=== PATIENT | male | born 1930 | race Caucasian/White ===

== ENCOUNTER 2017-01-29 18:58 | Inpatient (IN) | payer MEDICARE ==
[~2017-01-29] VITALS: Ht 170.2 cm; Wt 80.1 kg
[~2017-01-29 18:58] MED LIST: CARV6.2579 PO; DEXL60CA2 PO; HYDR-3011 PO; LEVO500T10 PO; METF850T PO; SITA1TBM7 PO; VALS40TA2 PO
--- NOTE | 2017-01-29 19:03 | ERA ---
ER Documentation Chief Complaint Date/Time DATE: 01/29/17 TIME: 19:03 Chief Complaint Abdominal pain HPI The patient is a 86-year-old male, presenting to the ER because of abdominal pain for the last couple days. The history is limited due to language barrier. He denies headache, neck pain, chest pain, dyspnea, vomiting, dysuria, diarrhea. He does not smoke or drink Past medical history: History of CVA with minimal right hemiparesis, hypertension, diabetes mellitus, GERD, anemia, dyslipidemia ROS All systems reviewed and are negative except as per history of present illness. Medications Home Meds Discontinued Reported Medications Hydroxyzine Hcl* (Hydroxyzine Hcl*) 25 Mg Tablet, 25 MG PO Q8H Y for ITCHING, # 30 TAB 08/25/16 Dexlansoprazole (Dexilant) 60 Mg Cap., 60 MG PO DAILY, #30 CAP 08/25/16 Sitagliptin Phos-Metformin Hcl (Janumet XR) 100-1,000 Mg Tbmp.24hr, 1 TAB PO WITH DINNER, #30 TAB 08/25/16 Valsartan* (Diovan*) 40 Mg Tablet, 40 MG PO DAILY, TAB 08/25/16 Metformin Hcl* (Metformin Hcl*) 850 Mg Tablet, 850 MG PO DAILY, TAB 11/04/14 Carvedilol* (Carvedilol*) 6.25 Mg Tablet, 6.25 MG PO BID 09/01/13 Discontinued Scripts Levofloxacin* (Levofloxacin*) 500 Mg Tablet, 500 MG PO DAILY for 10 Days, TAB Prov:KEESHA BENTLEY DO 08/25/16 Allergies Allergies: Coded Allergies: No Known Drug Allergy (Verified Allergy, Unknown, 01/29/17) PMhx/Soc History of Surgery: Yes (HERNIA REPAIR) Anesthesia Reaction: No Hx Neurological Disorder: No Hx Respiratory Disorders: Yes (COPD) Hx Cardiac Disorders: Yes (HTN) Hx Psychiatric Problems: No Hx Miscellaneous Medical Probl: Yes (HX OF STROKE, UTI) Hx Alcohol Use: No Hx Substance Use: No Hx Tobacco Use: Yes Physical Exam Vitals Vital Signs Date Time Temp Pulse Resp B/P Pulse Ox O2 Delivery O2 Flow Rate FiO2 01/29/17 19:07 98.0 105 18 159/95 94 Physical Exam Const: No acute distress. Head: Atraumatic. Eyes: Normal Conjunctiva. ENT: Normal External Ears, Nose and Mouth. Neck: Full range of motion. No meningismus. Resp: Clear to auscultation bilaterally. Cardio: Regular rate and rhythm, no murmurs. Abd: Soft, distended, normal bowel sounds, vague and minimal abdominal tenderness, no rigidity, rebound, CVA tenderness Skin: No petechiae or rashes. Back: No midline or flank tenderness. Ext: No cyanosis, or edema. Neur: Awake and alert. No focal deficit Psych: Normal Mood and Affect. Result Diagram: 01/29/17191401/29/171914 Results 24 hrs Laboratory Tests Test 01/29/17 19:15 Alanine Aminotransferase (ALT/SGPT) 16IU/L Albumin 4.0g/dl Albumin/Globulin Ratio 1.02 Alkaline Phosphatase 78IU/L Anion Gap 21 Aspartate Amino Transf (AST/SGOT) 18IU/L B-Type Natriuretic Peptide 523PG/ML Basophils # 0.110^3/ul Basophils % 0.5% Blood Urea Nitrogen 14mg/dl Calcium Level 9.7mg/dl Carbon Dioxide Level 25mmol/L Chloride Level 100mmol/L Creatinine 0.71mg/dl Direct Bilirubin 0.00mg/dl Eosinophils # 0.110^3/ul Eosinophils % 0.4% Globulin 3.90g/dl Glucose Level 203mg/dl Hematocrit 44.8% Hemoglobin 14.9g/dl Indirect Bilirubin 0.4mg/dl Lipase 61U/L Lymphocytes # 2.210^3/ul Lymphocytes % 19.4% Mean Corpuscular Hemoglobin 29.3pg Mean Corpuscular Hemoglobin Concent 33.3g/dl Mean Corpuscular Volume 88.2fl Mean Platelet Volume 9.5fl Monocytes # 0.710^3/ul Monocytes % 6.5% Neutrophils # 8.210^3/ul Neutrophils % 72.8% Nucleated Red Blood Cells # 0.010^3/ul Nucleated Red Blood Cells % 0.0/100WBC Platelet Count 96097^3/UL Potassium Level 3.6mmol/L Red Blood Count 5.0810^6/ul Red Cell Distribution Width 13.5% Sodium Level 142mmol/L Total Bilirubin 0.4mg/dl Total Protein 7.9g/dl Troponin I < 0.012ng/ml White Blood Count 11.310^3/ul Procedures/MDM [place] [address] Radiology Main Line: [phone] DIAGNOSTIC IMAGING REPORT Patient: CLAUDIA VILLASENOR : 1930 Age: 86 Sex: M MR #: [id number] DOS: 01/29/171906 Ordering MD: THAO RILEY MD Location: E/R Room/Bed: PROCEDURE: XR Chest. CLINICAL INDICATION: Shortness of breath. TECHNIQUE: A single portable view of the chest was obtained. COMPARISON: 11/13/2014 FINDINGS: The patient is rotated. The aorta is tortuous and atherosclerotic. The cardiomediastinal silhouette is otherwise within normal limits. Mild bibasilar atelectasis is seen. The remaining lungs and pleural spaces are clear. The soft tissues and osseous structures demonstrate benign age related senescent changes. IMPRESSION: Mild bibasilar atelectasis. RPTAT: HPNM Physician Echo Date Time Electronically viewed and signed by Physician Echo on 01/29/2017 20 :03 / CC: THAO RILEY MD EKG: Read by emergency physician Rate/Rhythm: Sinus tachycardia 102 beats/min QRS, ST, T-waves: No ST elevation, no T inversion Impression: Abnormal EKG Abdominal and pelvic CT is pending MEDICAL MAKING DECISION: The patient is a 86-year-old male, presenting with acute abdominal distress of unclear etiology. He remains stable in emergency department. The differential diagnoses considered include but are not limited to cholelithiasis, cholecystitis, cystitis, pancreatitis, hepatitis, gastritis, peptic ulcer disease, gastric ulcer, appendicitis, diverticulitis, cholangitis, choledocholithiasis, partial small bowel obstruction. Departure Diagnosis: Primary Impression: Abdominal pain Condition: Good Comments The patient is awaiting further abdominal pelvic CT scan. It is normal, he can be discharged home follow-up with his physician and gastroenterology for further outpatient evaluation THAO RILEY MD Jan 29, 2017 19:03
[2017-01-29 19:30] LABS: ADD SCAN DIFF NO
[2017-01-29 19:32] LABS: HEMATOCRIT 44.8 % (42.0-52.0); HEMOGLOBIN 14.9 g/dl (14.0-18.0); MEAN CORPUSCULAR HEMOGLOBIN 29.3 pg (29.0-33.0); MEAN CORPUSCULAR HGB CONC 33.3 g/dl (32.0-37.0); MEAN CORPUSCULAR VOLUME 88.2 fl (82.0-101.0); RED BLOOD COUNT 5.08 10^6/ul (4.70-6.10); RED CELL DISTRIBUTION WIDTH 13.5 % (11.5-14.5); WHITE BLOOD COUNT 11.3 10^3/ul (4.8-10.8)
[2017-01-29 19:33] LABS: BASOPHIL # 0.1 10^3/ul (0.0-0.1); BASOPHILS % 0.5 % (0.0-2.0); EOSINOPHILS # 0.1 10^3/ul (0.0-0.5); EOSINOPHILS % 0.4 % (0.0-7.0); LYMPHOCYTES # 2.2 10^3/ul (0.8-2.9); LYMPHOCYTES % 19.4 % (15.0-51.0); MEAN PLATELET VOLUME 9.5 fl (7.4-10.4); MONOCYTE # 0.7 10^3/ul (0.3-0.9); MONOCYTES % 6.5 % (0.0-11.0); NEUTROPHIL # 8.2 10^3/ul (1.6-7.5); NEUTROPHILS % 72.8 % (39.0-77.0); PLATELET COUNT 310 10^3/UL (140-415)
[2017-01-29 19:41] LABS: POTASSIUM 3.6 mmol/L (3.5-5.1)
[2017-01-29 19:43] LABS: BILIRUBIN,INDIRECT 0.4 mg/dl (0-1.1); BILIRUBIN,TOTAL 0.4 mg/dl (0.2-1.3); CREATININE 0.71 mg/dl (0.61-1.24)
[2017-01-29 19:44] LABS: ALBUMIN/GLOBULIN RATIO 1.02; CALCIUM 9.7 mg/dl (8.4-10.2); TOTAL PROTEIN 7.9 g/dl (6.1-8.1)
--- NOTE | 2017-01-29 20:04 | RADRPT ---
PROCEDURE: XR Chest. CLINICAL INDICATION: Shortness of breath. TECHNIQUE: A single portable view of the chest was obtained. COMPARISON: 11/13/2014 FINDINGS: The patient is rotated. The aorta is tortuous and atherosclerotic. The cardiomediastinal silhouett e is otherwise within normal limits. Mild bibasilar atelectasis is seen. The remaining lungs and ple ural spaces are clear. The soft tissues and osseous structures demonstrate benign age related senes cent changes. IMPRESSION: Mild bibasilar atelectasis. RPTAT: HPNM Physician Echo Date Time Electronically viewed and signed by Physician Echo on 01/29/2017 20:03 /
--- NOTE | 2017-01-29 21:20 | RADRPT ---
PROCEDURE: CT abdomen and pelvis without IV contrast. CLINICAL INDICATION: Abdominal pain TECHNIQUE: CT scan of the abdomen and pelvis without contrast was performed on the [employer] volumetric [address] scanner. The patient was scanned without intravenous contrast. Coronal and sagittal refo rmatted images were obtained from the axial source images. The CTDI vol is 14.33 mGy and the DLP is 833.92 mGy-cm. COMPARISON: None. FINDINGS: CT abdomen: The lung bases are clear. The heart size is not enlarged and is without pericardial thickening or e ffusion. The liver is normal in size and density and is without focal mass or intrahepatic biliary dilatation . The spleen is normal in size and homogeneous in density. A small hiatal hernia seen. The stomach is otherwise grossly unremarkable. The pancreas as visualized is normal. The gallbladder and bilia ry tree are unremarkable and there is no evidence for common bile duct dilatation. The adrenal glan ds are symmetric and normal. The kidneys are small in size. No renal calculus or obstructive uropa thy or mass lesion is seen. The aorta is of normal in caliber. Atherosclerotic vascular disease is seen. There is no retroperito barak lymphadenopathy. The po hepatis region is clear. The small and large bowel is gas distende d. The rectosigmoid region is fluid-filled. The small and large bowel and mesentery, as visualized , are otherwise unremarkable. No inflammatory changes in the periappendiceal region is seen. CT pelvis: The pelvic organs are normal. The pelvic sidewalls and inguinal regions are clear. No pelvic mass, lymphadenopathy, or free fluid is seen. No acute inflammation is seen. The urinary bladder is wit hin normal limits. Diffuse osteopenia is seen. Degenerative spondylosis of the lumbar spine is seen. Compression fractu res of the L1 and L2 vertebral bodies are seen and is most prominent at L2 with approximate 25-50% h eight loss. No osteolytic or osteoblastic lesion is detected. IMPRESSION: 1. Diffusely gas distended small and large bowel as well as fluid filled rectosigmoid region which may represent an ileus. Continued follow-up is suggested. 2. Small hiatal hernia. 3. L1 and L2 compression fractures and is most prominent at L2 with approximately 25-50% height loss . RPTAT: HPNM Chevy Christie, Physician Date Time Electronically viewed and signed by Chevy Christie, Physician on 01/29/2017 21:20 /
[2017-01-29] MEDS ORDERED: ONDANSETRON 4 MG INJ IV STA (21:28)
[2017-01-29] MEDS ORDERED: ONDANSETRON 4 MG INJ ONE (21:29)
[2017-01-29] MEDS ORDERED: DEXTROSE 5%-0.45% NACL 1,000 ML IV SCH (21:32)
[2017-01-29] MEDS ORDERED: ACETAMINOPHEN 325 MG TAB PO PRN (22:00)
[2017-01-29] MEDS ORDERED: ONDANSETRON 4 MG INJ IV PRN (22:00)
--- NOTE | 2017-01-29 22:25 | HP ---
Date/Time of Note Date/Time of Note DATE: 01/29/17 TIME: 22:24 Assessment/Plan VTE Prophylaxis VTE Prophylaxis Intervention: other (Lovenox) Assessment/Plan Assessment/Plan 1) Ileus - Admit to Med Surge - Bowel Rest/NPO - IV Hydration - Antiemetic if needed - NGT if needed 2) Hypertension - untreated - Labetalol given in ER without change in BP, but pulse came down into the 80s - Hydralazine to be given in the ER to lower BP prior to transfer to the Floor - Atenolol 25 mg and Lisinopril 10 mg po x 1 - Re-check BP in the AM, monitor. May need regular medication going forward. HPI/ROS Admit Date/Time Admit Date/Time 01/29/2017 2132 Hx of Present Illness Chief Complaint Abdominal pain HPI The patient is a 86-year-old male, presenting to the ER because of abdominal pain for the last couple days. He has been bloated and vomiting and has not eaten anything for about 24 hours. Right now, he does not have any abdominal pain or nausea. History is limited because of language barrier, though he does speak/understand some Hungarian, and he has no current complaints. I asked him if he has high blood pressure, he replies "sometimes". ER Course per ER Physician: The patient is a 86-year-old male, presenting with acute abdominal distress of unclear etiology. He remains stable in emergency department. The differential diagnoses considered include but are not limited to cholelithiasis, cholecystitis, cystitis, pancreatitis, hepatitis, gastritis, peptic ulcer disease, gastric ulcer, appendicitis, diverticulitis, cholangitis, choledocholithiasis, partial small bowel obstruction. ROS General: Admits: Denies: Fever, Chills, Generalized Body Aches Eyes: Admits: Denies: Blurry Vision, Double Vision, Yellow Eyes HENT: Admits: Denies: Sinus Pain/Pressure, Ear Pain/Pressure, Runny/Stuffy Nose, Sore Throat Cardiovascular: Admits: Denies: Chest Pain, Palpitations, Leg Swelling Pulmonary: Admits: Denies: Cough, Wheeze, Shortness of Breath Gastrointestinal: Admits: Denies: Abdominal Pain, Nausea, Vomiting, Diarrhea, Blood in Stool, Black-Colored Stool Urogenital: Admits: Difficulty Urinating - "I go in my diaper" Denies: Burning with Urination, Nocturia Musculoskeletal: Admits: Denies: Joint Pain, Joint Swelling, Muscle Pain Neurological: Admits: Denies: Headache, Dizziness, Numbness, Tingling Integumentary: Admits: Denies: Rash, Itch, Yellow Skin PMH/Family/Social Past Medical History Diabetes Mellitus; GERD; Anemia; Dyslipidemia; COPD; HTN; UTI; History of CVA with minimal right hemiparesis Social History Alcohol Use: none Smoking Status: Current every day smoker Drug Use: none Exam/Review of Systems Vital Signs Vitals Vital Signs Date Time Temp Pulse Resp B/P Pulse Ox O2 Delivery O2 Flow Rate FiO2 01/29/17 21:10 80 18 165/100 97 Room Air 01/29/17 19:07 98.0 Exam Exam General: Elcerly Romansh-Speaking male, alert, in NAD Eyes: Sclera White, EOMI HENT: Normocephalic/Atraumatic, External Ears/Nose Normal, Moist Mucus Membranes Neck: Supple, Trachea Midline Cardiovascular: Normal Rate, Normal Rhythm, Normal S1 and S2, No Murmur, No Extra Sounds Pulmonary: Clear to Auscultation Bilaterally, Normal Respiratory Effort, No Rales, Rhonchi or Wheezes Gastrointestinal: Bloated abdomen, slightly tympanic. Normoactive Bowel Sounds , Soft, Non-Tender, Unable to appreciate abdominal organs due to pronounced distention. No fluid wave. Urogenital: Deferred Neurological: CN II - XII Grossly Intact, Non-Focal, Speech Normal Integumentary: Normal Moisture and Temperature, Good Turgor, No Jaundice, No Rash Lymphatic: No Cervical Lymphadenopathy Psychiatric: Appropriate Mood and Affect, Good Eye Contact Labs Result Diagram: 01/29/17191401/29/171914 Medications Medications Home Meds Discontinued Reported Medications Hydroxyzine Hcl* (Hydroxyzine Hcl*) 25 Mg Tablet, 25 MG PO Q8H Y for ITCHING, # 30 TAB 08/25/16 Dexlansoprazole (Dexilant) 60 Mg , 60 MG PO DAILY, #30 CAP 08/25/16 Sitagliptin Phos-Metformin Hcl (Janumet XR) 100-1,000 Mg Tbmp.24hr, 1 TAB PO WITH DINNER, #30 TAB 08/25/16 Valsartan* (Diovan*) 40 Mg Tablet, 40 MG PO DAILY, TAB 08/25/16 Metformin Hcl* (Metformin Hcl*) 850 Mg Tablet, 850 MG PO DAILY, TAB 11/04/14 Carvedilol* (Carvedilol*) 6.25 Mg Tablet, 6.25 MG PO BID 09/01/13 Discontinued Scripts Levofloxacin* (Levofloxacin*) 500 Mg Tablet, 500 MG PO DAILY for 10 Days, TAB Prov:KEESHA BENTLEY DO 08/25/16 Current Medications Dextrose/Sodium Chloride (D5-1/2ns) 1,000 ml @ 80 mls/hr [id number] IV ; Start at 21:32; Stop 01/30/17 at 10:01 Procedures Procedures Laboratory Tests Test 01/29/17 19:15 Alanine Aminotransferase (ALT/SGPT) 16IU/L Albumin 4.0g/dl Albumin/Globulin Ratio 1.02 Alkaline Phosphatase 78IU/L Anion Gap 21 Aspartate Amino Transf (AST/SGOT) 18IU/L B-Type Natriuretic Peptide 523PG/ML Basophils # 0.110^3/ul Basophils % 0.5% Blood Urea Nitrogen 14mg/dl Calcium Level 9.7mg/dl Carbon Dioxide Level 25mmol/L Chloride Level 100mmol/L Creatinine 0.71mg/dl Direct Bilirubin 0.00mg/dl Eosinophils # 0.110^3/ul Eosinophils % 0.4% Globulin 3.90g/dl Glucose Level 203mg/dl Hematocrit 44.8% Hemoglobin 14.9g/dl Indirect Bilirubin 0.4mg/dl Lipase 61U/L Lymphocytes # 2.210^3/ul Lymphocytes % 19.4% Mean Corpuscular Hemoglobin 29.3pg Mean Corpuscular Hemoglobin Concent 33.3g/dl Mean Corpuscular Volume 88.2fl Mean Platelet Volume 9.5fl Monocytes # 0.710^3/ul Monocytes % 6.5% Neutrophils # 8.210^3/ul Neutrophils % 72.8% Nucleated Red Blood Cells # 0.010^3/ul Nucleated Red Blood Cells % 0.0/100WBC Platelet Count 08800^3/UL Potassium Level 3.6mmol/L Red Blood Count 5.0810^6/ul Red Cell Distribution Width 13.5% Sodium Level 142mmol/L Total Bilirubin 0.4mg/dl Total Protein 7.9g/dl Troponin I < 0.012ng/ml White Blood Count 11.310^3/ul EKG: EKG: Read by emergency physician Rate/Rhythm: Sinus tachycardia 102 beats/min QRS, ST, T-waves: No ST elevation, no T inversion Impression: Abnormal EKG RADIOLOGY: PROCEDURE: CT abdomen and pelvis without IV contrast. CLINICAL INDICATION: Abdominal pain COMPARISON: None. FINDINGS: CT abdomen: The lung bases are clear. The heart size is not enlarged and is without pericardial thickening or effusion. The liver is normal in size and density and is without focal mass or intrahepatic biliary dilatation. The spleen is normal in size and homogeneous in density. A small hiatal hernia seen. The stomach is otherwise grossly unremarkable. The pancreas as visualized is normal. The gallbladder and biliary tree are unremarkable and there is no evidence for common bile duct dilatation. The adrenal glands are symmetric and normal. The kidneys are small in size. No renal calculus or obstructive uropathy or mass lesion is seen. The aorta is of normal in caliber. Atherosclerotic vascular disease is seen. There is no retroperitoneal lymphadenopathy. The po hepatis region is clear. The small and large bowel is gas distended. The rectosigmoid region is fluid-filled. The small and large bowel and mesentery, as visualized, are otherwise unremarkable. No inflammatory changes in the periappendiceal region is seen. CT pelvis: The pelvic organs are normal. The pelvic sidewalls and inguinal regions are clear. No pelvic mass, lymphadenopathy, or free fluid is seen. No acute inflammation is seen. The urinary bladder is within normal limits. Diffuse osteopenia is seen. Degenerative spondylosis of the lumbar spine is seen. Compression fractures of the L1 and L2 vertebral bodies are seen and is most prominent at L2 with approximate 25-50% height loss. No osteolytic or osteoblastic lesion is detected. IMPRESSION: 1. Diffusely gas distended small and large bowel as well as fluid filled rectosigmoid region which may represent an ileus. Continued follow-up is suggested. 2. Small hiatal hernia. 3. L1 and L2 compression fractures and is most prominent at L2 with approximately 25-50% height loss. PROCEDURE: XR Chest. CLINICAL INDICATION: Shortness of breath. TECHNIQUE: A single portable view of the chest was obtained. COMPARISON: 11/13/2014 FINDINGS: The patient is rotated. The aorta is tortuous and atherosclerotic. The cardiomediastinal silhouette is otherwise within normal limits. Mild bibasilar atelectasis is seen. The remaining lungs and pleural spaces are clear. The soft tissues and osseous structures demonstrate benign age related senescent changes. IMPRESSION: Mild bibasilar atelectasis. RIYA GASPAR DO Jan 29, 2017 22:24
[2017-01-30] MEDS ORDERED: LABETALOL HCL 20MG INJ ONE (00:21)
[2017-01-30] MEDS ORDERED: LABETALOL HCL 20MG INJ IV ONE (00:30)
[2017-01-30] MEDS ORDERED: hydrALAzine 20 MG INJ ONE (00:51)
[2017-01-30 01:00] VITALS: TEMP 98.4
[2017-01-30] MEDS ORDERED: METOPROLOL 25 MG TAB PO ONE (01:00)
[2017-01-30] MEDS ORDERED: hydrALAzine 20 MG INJ IV ONE (01:00)
[2017-01-30] MEDS ORDERED: BENAZEPRIL 10 MG TAB PO ONE (01:00)
[2017-01-30] MEDS ORDERED: ONDANSETRON 4 MG TAB PO PRN (01:30)
[2017-01-30] MEDS ORDERED: morphine 2 MG INJ IV PRN (01:30)
[2017-01-30] MEDS ORDERED: NACL 0.9% 3 ML SYG IV SCH (01:30)
[2017-01-30] MEDS ORDERED: ONDANSETRON 4 MG INJ IV PRN (01:30)
[2017-01-30] MEDS ORDERED: ACETAMINOPHEN 325 MG TAB PO PRN (01:30)
[2017-01-30 01:45] VITALS: BP 139/74; PULSE 83; RESP 20
[2017-01-30 01:49] VITALS: Ht 170.2 cm; Wt 80.1 kg
[2017-01-30] MEDS: SOD CHLORIDE 0.9% 1,000 ML IV SCH ×3 (01:54→20:43)
[2017-01-30] MEDS ORDERED: GLUCOSE GEL 15 GRAM TUBE PO PRN ×2 (03:00)
[2017-01-30] MEDS ORDERED: GLUCOSE GEL 15 GRAM TUBE BUCCAL PRN (03:00)
[2017-01-30] MEDS ORDERED: GLUCAGON 1 MG INJ IM PRN (03:00)
[2017-01-30] MEDS ORDERED: DEXTROSE 50% 50 ML SYRINGE IV PRN ×2 (03:00)
[2017-01-30 05:42] LABS: ADD SCAN DIFF NO
[2017-01-30 06:12] LABS: BASOPHILS % 0.3 % (0.0-2.0); EOSINOPHILS % 0.1 % (0.0-7.0); HEMATOCRIT 38.7 % (42.0-52.0); HEMOGLOBIN 12.9 g/dl (14.0-18.0); LYMPHOCYTES # 1.7 10^3/ul (0.8-2.9); LYMPHOCYTES % 18.4 % (15.0-51.0); MEAN CORPUSCULAR HEMOGLOBIN 29.7 pg (29.0-33.0); MEAN CORPUSCULAR HGB CONC 33.3 g/dl (32.0-37.0); MEAN CORPUSCULAR VOLUME 89.2 fl (82.0-101.0); MEAN PLATELET VOLUME 9.6 fl (7.4-10.4); MONOCYTE # 0.5 10^3/ul (0.3-0.9); MONOCYTES % 5.8 % (0.0-11.0); NEUTROPHIL # 6.9 10^3/ul (1.6-7.5); PLATELET COUNT 292 10^3/UL (140-415); RED BLOOD COUNT 4.34 10^6/ul (4.70-6.10); RED CELL DISTRIBUTION WIDTH 13.7 % (11.5-14.5); WHITE BLOOD COUNT 9.3 10^3/ul (4.8-10.8)
[2017-01-30] MEDS: INSULIN ASPART [NOVOLOG] 3 ML PEN SC SCH ×4 (06:29→23:51)
[2017-01-30 06:42] LABS: POTASSIUM 3.3 mmol/L (3.5-5.1)
[2017-01-30 06:44] LABS: CREATININE 0.65 mg/dl (0.61-1.24)
[2017-01-30 06:45] LABS: CALCIUM 8.7 mg/dl (8.4-10.2)
[2017-01-30 07:36] VITALS: BP 127/60; RESP 16
[2017-01-30 07:41] LABS: CHOL/HDL RATIO 5.3 RATIO
[2017-01-30] MEDS: FAMOTIDINE 20 MG INJ IV SCH ×2 (08:47→20:44)
[2017-01-30] MEDS: ENOXAPARIN 40 MG/0.4 ML SYG SC SCH (08:53)
--- NOTE | 2017-01-30 09:34 | PN ---
Date/Time of Note Date/Time of Note DATE: 01/30/17 TIME: 09:26 Assessment/Plan VTE Prophylaxis VTE Prophylaxis Intervention: LMWH Lines/Catheters IV Catheter Type (from Nrsg): Peripheral IV Urinary Cath still in place: No Assessment/Plan Assessment/Plan 86 yo M with abd pain managed for 1. Abd Ileus 2. Chronic L1/ L2 Compression fracture 3. Uncontrolled Diabetes Mellitus A1C 7.7 4. GERD 5. Dyslipidemia 6. COPD 7. HTN 8. History of CVA with minimal right hemiparesis 9. Hypokalemia PLAN: * ileus seems to have spontaneously resolved / will get SBFT * Will review CT with back surgeon and see if patient is stable for PT eval / this may be pursued as outpatient * continue SSI for now while NPO and commence hypoglycemics when started on a diet * replace lytes / resume aspirin / antihypertensives and statin / supportive care PROPHYLAXIS: Lovenox / pepcid Subjective 24 Hr Interval Summary Free Text/Dictation * Patient is doing much better' * reports improvement in abd pain * per nurses, he had a big BM yesterday and has been [assing gas since * Patient reports being 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 Exam/Review of Systems Vital Signs Vitals Vital Signs Date Time Temp Pulse Resp B/P Pulse Ox O2 Delivery O2 Flow Rate FiO2 01/30/17 07:36 98.0 80 16 127/60 93 01/30/17 01:45 Room Air Intake and Output 01/29/17 01/29/17 01/30/17 15:00 23:00 07:00 Intake Total 576.3 ml Balance 576.3 ml Exam Constitutional: alert, obese, oriented, other (elderly), No distress Psych: nl mood/affect Head: normocephalic Eyes: PERRL, No icteric ENMT: No mucosa pink and moist (dry) Neck: non-tender, supple Respiratory: clear to auscultation, normal air movement Cardiovascular: regular rate and rhythm, No murmurs/extra sounds Gastrointestinal: non-tender, other (obese), soft, No distended Extremities: No edema Neurological: nl mental status, other (R sided weakness (weak 4/5 ) in both upper and lower extremities) Results Result Diagram: 01/30/17 0450 01/30/17 0450 Results 24 hrs Laboratory Tests Test 01/29/17 19:15 01/30/17 04:50 01/30/17 05:45 Alanine Aminotransferase (ALT/SGPT) 16 Albumin 4.0 Albumin/Globulin Ratio 1.02 Alkaline Phosphatase 78 Anion Gap 21 H 17 H Aspartate Amino Transf (AST/SGOT) 18 B-Type Natriuretic Peptide 523 H Basophils # 0.1 0.0 Basophils % 0.5 0.3 Blood Urea Nitrogen 14 14 Calcium Level 9.7 8.7 Carbon Dioxide Level 25 24 Chloride Level 100 102 Creatinine 0.71 0.65 Direct Bilirubin 0.00 Eosinophils # 0.1 0.0 Eosinophils % 0.4 0.1 Globulin 3.90 H Glucose Level 203 221 H Hematocrit 44.8 38.7 L Hemoglobin 14.9 12.9 L Indirect Bilirubin 0.4 Lipase 61 Lymphocytes # 2.2 1.7 Lymphocytes % 19.4 18.4 Mean Corpuscular Hemoglobin 29.3 29.7 Mean Corpuscular Hemoglobin Concent 33.3 33.3 Mean Corpuscular Volume 88.2 89.2 Mean Platelet Volume 9.5 # 9.6 Monocytes # 0.7 0.5 Monocytes % 6.5 5.8 Neutrophils # 8.2 H 6.9 Neutrophils % 72.8 75.0 Nucleated Red Blood Cells # 0.0 0.0 Nucleated Red Blood Cells % 0.0 0.0 Platelet Count 310 292 Potassium Level 3.6 3.3 L Red Blood Count 5.08 4.34 L Red Cell Distribution Width 13.5 13.7 Sodium Level 142 140 Total Bilirubin 0.4 Total Protein 7.9 Troponin I < 0.012 White Blood Count 11.3 #H 9.3 Cholesterol Level 235 H Cholesterol/HDL Ratio 5.3 HDL Cholesterol 44 Hemoglobin A1c 7.7 H LDL Cholesterol, Calculated 163 Triglycerides Level 139 Bedside Glucose 201 Medications Medications Current Medications Sodium Chloride (NS) 1,000 ml @ 100 mls/hr Q10H IV Last administered on t 01:54; Admin Dose 100 MLS/HR; Start 01/30/17 at 01:11 Ondansetron HCl (Zofran Tab) 4 mg Q6H PRN PO NAUSEA AND/OR VOMITING; Start at 01:30 Ondansetron HCl (Zofran Inj) 4 mg Q6H PRN IV NAUSEA AND/OR VOMITING; Start at 01:30 Acetaminophen (Tylenol Tab) 650 mg Q6H PRN PO PAIN LEVEL 1-3 OR FEVER; Start at 01:30 Morphine Sulfate (morphine) 2 mg Q4H PRN IV SEVERE PAIN LEVEL 7-10; Start 01/30 at 01:30 Famotidine (Pepcid Iv) 20 mg Q12 IV Last administered on 01/30/17 08:47; Admin Dose 20 MG; Start 01/30/17 at 09:00 Enoxaparin Sodium (Lovenox) 40 mg DAILY SC Last administered on 01/30/17 08:53 ; Admin Dose 40 MG; Start 01/30/17 at 09:00 Insulin Aspart (Novolog Insulin Pen) NOVOLOG *MILD* ALGORI... Q6 SC Last administered on 01/30/17 06:29; Admin Dose 2 UNIT; Start 01/30/17 at 06:00 Miscellaneous Information 1 ea NOTE XX ; Start 01/30/17 at 03:00 Glucose (Glutose) 15 gm Q15M PRN PO DECREASED GLUCOSE; Start 01/30/17 at 03:00 Glucose (Glutose) 22.5 gm Q15M PRN PO DECREASED GLUCOSE; Start 01/30/17 at 03: 00 Dextrose (D50w Syringe) 25 ml Q15M PRN IV DECREASED GLUCOSE; Start 01/30/17 at 03:00 Dextrose (D50w Syringe) 50 ml Q15M PRN IV DECREASED GLUCOSE; Start 01/30/17 at 03:00 Glucagon (Glucagen) 1 mg Q15M PRN IM DECREASED GLUCOSE; Start 01/30/17 at 03:00 Glucose (Glutose) 15 gm Q15M PRN BUCCAL DECREASED GLUCOSE; Start 01/30/17 at 03 :00 SHANAE BRAGA Jan 30, 2017 09:34
[2017-01-30] MEDS ORDERED: POTASSIUM CHLORIDE 250 ML IVPB ONE (10:30)
[2017-01-30] MEDS ORDERED: DIATR MEGLU/DIATRIZOATE SODIUM 120 ML BTL ONE (15:01)
[2017-01-30 17:26] LABS: ADD UMIC YES; URINE BILIRUBIN (Dip) NEGATIVE (NEGATIVE); URINE BLOOD (Dip) NEGATIVE (NEGATIVE); URINE COLOR YELLOW (YELLOW); URINE KETONES (Dip) NEGATIVE (NEGATIVE); URINE LEUKOCYTE ESTERASE (Dip) NEGATIVE (NEGATIVE); URINE NITRITE (Dip) NEGATIVE (NEGATIVE); URINE TOTAL PROTEIN (Dip) 1+ (NEGATIVE); URINE UROBILINOGEN (Dip) 1.0 E.U./dL (0.1-1.0)
[2017-01-30 17:41] LABS: SQUAMOUS EPITHELIAL CELL,UR RARE; URINE RBCS 0-2 /HPF (0)
--- NOTE | 2017-01-30 18:34 | RADRPT ---
PROCEDURE: Small bowel follow-through. CLINICAL INDICATION: Abdomen pain. TECHNIQUE: Water-soluble contrast was administered orally and several spot and overhead radiograph s of the abdomen were obtained. COMPARISON: None. FINDINGS: On the preliminary radiograph, there is gas throughout nondilated small bowel and colon. There are d egenerative changes of the spine. Following oral ingestion of water soluble contrast, there is no visualization of small bowel displac ement or mass. The small bowel folds are normal. There is no evidence of obstruction. Transit time is normal with contrast in the colon at 60 minutes and throughout the rectosigmoid at h ours. IMPRESSION: 1. No evidence of obstruction. RPTAT: QQ .Kirk Villalobos MD, MD Date Time Electronically viewed and signed by .Kirk Villalobos MD, on 01/30/2017 18:33 .R/
[2017-01-30 19:52] VITALS: BP 133/64; RESP 19
[2017-01-30] MEDS: ATORVASTATIN 40 MG TAB PO SCH (20:48)
[2017-01-31 05:14] LABS: ADD SCAN DIFF NO
[2017-01-31 05:19] LABS: BASOPHILS % 0.5 % (0.0-2.0); EOSINOPHILS # 0.2 10^3/ul (0.0-0.5); EOSINOPHILS % 2.3 % (0.0-7.0); HEMATOCRIT 36.1 % (42.0-52.0); HEMOGLOBIN 11.5 g/dl (14.0-18.0); LYMPHOCYTES # 2.5 10^3/ul (0.8-2.9); LYMPHOCYTES % 34.2 % (15.0-51.0); MEAN CORPUSCULAR HEMOGLOBIN 29.2 pg (29.0-33.0); MEAN CORPUSCULAR HGB CONC 31.9 g/dl (32.0-37.0); MEAN CORPUSCULAR VOLUME 91.6 fl (82.0-101.0); MEAN PLATELET VOLUME 9.6 fl (7.4-10.4); MONOCYTE # 0.6 10^3/ul (0.3-0.9); NEUTROPHILS % 54.7 % (39.0-77.0); PLATELET COUNT 265 10^3/UL (140-415); RED BLOOD COUNT 3.94 10^6/ul (4.70-6.10); RED CELL DISTRIBUTION WIDTH 14.3 % (11.5-14.5); WHITE BLOOD COUNT 7.4 10^3/ul (4.8-10.8)
[2017-01-31] MEDS: SOD CHLORIDE 0.9% 1,000 ML IV SCH ×2 (05:20→17:11)
[2017-01-31 05:33] LABS: ALBUMIN 3.2 g/dl (3.3-4.9)
[2017-01-31 05:36] LABS: CREATININE 0.74 mg/dl (0.61-1.24); PHOSPHORUS 2.8 mg/dl (2.5-4.9)
[2017-01-31 05:37] LABS: CALCIUM 8.2 mg/dl (8.4-10.2); MAGNESIUM 1.8 mg/dl (1.7-2.5)
[2017-01-31] MEDS: INSULIN ASPART [NOVOLOG] 3 ML PEN SC SCH ×4 (06:00→21:00)
[2017-01-31 06:07] LABS: THYROID STIMULATING HORMONE 1.27 MIU/L (0.465-4.680)
[2017-01-31 07:57] VITALS: BP 144/65; RESP 20
[2017-01-31] MEDS: ASPIRIN (EC) 81 MG TAB PO SCH (08:50)
[2017-01-31] MEDS: FAMOTIDINE 20 MG INJ IV SCH ×2 (08:51→21:00)
[2017-01-31] MEDS: LISINOPRIL 20 MG TAB PO SCH (08:51)
[2017-01-31] MEDS: ENOXAPARIN 40 MG/0.4 ML SYG SC SCH (09:06)
--- NOTE | 2017-01-31 09:42 | PN ---
Date/Time of Note Date/Time of Note DATE: 01/31/17 TIME: 09:41 Assessment/Plan Lines/Catheters IV Catheter Type (from [facility]): Peripheral IV Urinary Cath still in place: No Exam/Review of Systems Vital Signs Vitals Vital Signs Date Time Temp Pulse Resp B/P Pulse Ox O2 Delivery O2 Flow Rate FiO2 01/31/17 07:57 98.9 77 20 144/65 97 01/30/17 01:45 Room Air Intake and Output 01/30/17 01/30/17 01/31/17 15:00 23:00 07:00 Intake Total 600 ml 850 ml 1000 ml Balance 600 ml 850 ml 1000 ml Results Result Diagram: 01/31/17 0421 01/31/17 0425 Results 24 hrs Laboratory Tests Test 01/30/17 11:52 01/30/17 17:20 01/30/17 18:04 01/30/17 23:44 Bedside Glucose 149 164 143 Urine Bilirubin NEGATIVE Urine Clarity CLEAR Urine Color YELLOW Urine Glucose 0.1% H Urine Hemoglobin NEGATIVE Urine Ketones NEGATIVE Urine Leukocyte Esterase NEGATIVE Urine Microscopic RBC 0-2 Urine Microscopic WBC 0-2 Urine Nitrite NEGATIVE Urine Specific [place] >=1.030 H Urine Squamous Epithelial Cells RARE Urine Total Protein 1+ H Urine Urobilinogen 1.0 E.U./dL Urine pH 5.5 Test 01/31/17 04:21 01/31/17 04:25 01/31/17 06:00 Basophils # 0.0 Basophils % 0.5 Eosinophils # 0.2 Eosinophils % 2.3 Hematocrit 36.1 L Hemoglobin 11.5 L Lymphocytes # 2.5 Lymphocytes % 34.2 Mean Corpuscular Hemoglobin 29.2 Mean Corpuscular Hemoglobin Concent 31.9 L Mean Corpuscular Volume 91.6 Mean Platelet Volume 9.6 Monocytes # 0.6 Monocytes % 8.0 Neutrophils # 4.0 Neutrophils % 54.7 Nucleated Red Blood Cells # 0.0 Nucleated Red Blood Cells % 0.0 Platelet Count 265 Red Blood Count 3.94 L Red Cell Distribution Width 14.3 White Blood Count 7.4 # Albumin 3.2 L Anion Gap 14 Blood Urea Nitrogen 16 Calcium Level 8.2 L Carbon Dioxide Level 28 Chloride Level 107 Creatinine 0.74 Glucose Level 138 # Magnesium Level 1.8 Phosphorus Level 2.8 Potassium Level 3.0 L Sodium Level 146 H Thyroid Stimulating Hormone (TSH) 1.270 Bedside Glucose 135 Medications Medications Current Medications Sodium Chloride (NS) 1,000 ml @ 100 mls/hr Q10H IV Last administered on 05:20; Admin Dose 100 MLS/HR; Start 01/30/17 at 01:11 Ondansetron HCl (Zofran Tab) 4 mg Q6H PRN PO NAUSEA AND/OR VOMITING; Start at 01:30 Ondansetron HCl (Zofran Inj) 4 mg Q6H PRN IV NAUSEA AND/OR VOMITING; Start at 01:30 Acetaminophen (Tylenol Tab) 650 mg Q6H PRN PO PAIN LEVEL 1-3 OR FEVER; Start at 01:30 Morphine Sulfate (morphine) 2 mg Q4H PRN IV SEVERE PAIN LEVEL 7-10; Start 01/30 at 01:30 Famotidine (Pepcid Iv) 20 mg Q12 IV Last administered on 01/31/17 08:51; Admin Dose 20 MG; Start 01/30/17 at 09:00 Enoxaparin Sodium (Lovenox) 40 mg DAILY SC Last administered on 01/31/17 09:06 ; Admin Dose 40 MG; Start 01/30/17 at 09:00 Insulin Aspart (Novolog Insulin Pen) NOVOLOG *MILD* ALGORI... Q6 SC Last administered on 01/30/17 23:51; Admin Dose 1 UNIT; Start 01/30/17 at 06:00 Miscellaneous Information 1 ea NOTE XX ; Start 01/30/17 at 03:00 Glucose (Glutose) 15 gm Q15M PRN PO DECREASED GLUCOSE; Start 01/30/17 at 03:00 Glucose (Glutose) 22.5 gm Q15M PRN PO DECREASED GLUCOSE; Start 01/30/17 at 03: 00 Dextrose (D50w Syringe) 25 ml Q15M PRN IV DECREASED GLUCOSE; Start 01/30/17 at 03:00 Dextrose (D50w Syringe) 50 ml Q15M PRN IV DECREASED GLUCOSE; Start 01/30/17 at 03:00 Glucagon (Glucagen) 1 mg Q15M PRN IM DECREASED GLUCOSE; Start 01/30/17 at 03:00 Glucose (Glutose) 15 gm Q15M PRN BUCCAL DECREASED GLUCOSE; Start 01/30/17 at 03 :00 Aspirin (Halfprin) 81 mg DAILY PO Last administered on 01/31/17 08:50; Admin Dose 81 MG; Start 01/31/17 at 09:00 Atorvastatin Calcium (Lipitor) 40 mg HS PO Last administered on 01/30/17 20:48 ; Admin Dose 40 MG; Start 01/30/17 at 21:00 Lisinopril (Zestril) 20 mg DAILY PO Last administered on 01/31/17 08:51; Admin Dose 20 MG; Start 01/31/17 at 09:00 SHANAE BRAGA Jan 31, 2017 09:42
--- NOTE | 2017-01-31 10:06 | PN ---
Date/Time of Note Date/Time of Note DATE: 01/31/17 TIME: 10:03 Assessment/Plan Lines/Catheters IV Catheter Type (from [facility]rs[facility]): Peripheral IV Urinary Cath still in place: No Assessment/Plan Assessment/Plan 86 yo M with abd pain managed for 1. Abd Ileus: resolved 2. Chronic L1/ L2 Compression fracture 3. Uncontrolled Diabetes Mellitus A1C 7.7 4. GERD 5. Dyslipidemia 6. COPD 7. HTN 8. History of CVA with Right sided hemiparesis 9. Hypokalemia PLAN: * SBFT reviewed and negative, will advance diet * f/u MRI of the back and review findings with back surgeon * Continue supportive care / resume aspirin / antihypertensives and statin / supportive care Exam/Review of Systems Vital Signs Vitals Vital Signs Date Time Temp Pulse Resp B/P Pulse Ox O2 Delivery O2 Flow Rate FiO2 01/31/17 07:57 98.9 77 20 144/65 97 01/30/17 01:45 Room Air Intake and Output 01/30/17 01/30/17 01/31/17 15:00 23:00 07:00 Intake Total 600 ml 850 ml 1000 ml Balance 600 ml 850 ml 1000 ml Results Result Diagram: 01/31/17 0421 01/31/17 0425 Results 24 hrs Laboratory Tests Test 01/30/17 11:52 01/30/17 17:20 01/30/17 18:04 01/30/17 23:44 Bedside Glucose 149 164 143 Urine Bilirubin NEGATIVE Urine Clarity CLEAR Urine Color YELLOW Urine Glucose 0.1% H Urine Hemoglobin NEGATIVE Urine Ketones NEGATIVE Urine Leukocyte Esterase NEGATIVE Urine Microscopic RBC 0-2 Urine Microscopic WBC 0-2 Urine Nitrite NEGATIVE Urine Specific [place] >=1.030 H Urine Squamous Epithelial Cells RARE Urine Total Protein 1+ H Urine Urobilinogen 1.0 E.U./dL Urine pH 5.5 Test 01/31/17 04:21 01/31/17 04:25 01/31/17 06:00 Basophils # 0.0 Basophils % 0.5 Eosinophils # 0.2 Eosinophils % 2.3 Hematocrit 36.1 L Hemoglobin 11.5 L Lymphocytes # 2.5 Lymphocytes % 34.2 Mean Corpuscular Hemoglobin 29.2 Mean Corpuscular Hemoglobin Concent 31.9 L Mean Corpuscular Volume 91.6 Mean Platelet Volume 9.6 Monocytes # 0.6 Monocytes % 8.0 Neutrophils # 4.0 Neutrophils % 54.7 Nucleated Red Blood Cells # 0.0 Nucleated Red Blood Cells % 0.0 Platelet Count 265 Red Blood Count 3.94 L Red Cell Distribution Width 14.3 White Blood Count 7.4 # Albumin 3.2 L Anion Gap 14 Blood Urea Nitrogen 16 Calcium Level 8.2 L Carbon Dioxide Level 28 Chloride Level 107 Creatinine 0.74 Glucose Level 138 # Magnesium Level 1.8 Phosphorus Level 2.8 Potassium Level 3.0 L Sodium Level 146 H Thyroid Stimulating Hormone (TSH) 1.270 Bedside Glucose 135 Medications Medications Current Medications Sodium Chloride (NS) 1,000 ml @ 100 mls/hr Q10H IV Last administered on 05:20; Admin Dose 100 MLS/HR; Start 01/30/17 at 01:11 Ondansetron HCl (Zofran Tab) 4 mg Q6H PRN PO NAUSEA AND/OR VOMITING; Start at 01:30 Ondansetron HCl (Zofran Inj) 4 mg Q6H PRN IV NAUSEA AND/OR VOMITING; Start at 01:30 Acetaminophen (Tylenol Tab) 650 mg Q6H PRN PO PAIN LEVEL 1-3 OR FEVER; Start at 01:30 Morphine Sulfate (morphine) 2 mg Q4H PRN IV SEVERE PAIN LEVEL 7-10; Start 01/30 at 01:30 Famotidine (Pepcid Iv) 20 mg Q12 IV Last administered on 01/31/17 08:51; Admin Dose 20 MG; Start 01/30/17 at 09:00 Enoxaparin Sodium (Lovenox) 40 mg DAILY SC Last administered on 01/31/17 09:06 ; Admin Dose 40 MG; Start 01/30/17 at 09:00 Insulin Aspart (Novolog Insulin Pen) NOVOLOG *MILD* ALGORI... Q6 SC Last administered on 01/30/17 23:51; Admin Dose 1 UNIT; Start 01/30/17 at 06:00 Miscellaneous Information 1 ea NOTE XX ; Start 01/30/17 at 03:00 Glucose (Glutose) 15 gm Q15M PRN PO DECREASED GLUCOSE; Start 01/30/17 at 03:00 Glucose (Glutose) 22.5 gm Q15M PRN PO DECREASED GLUCOSE; Start 01/30/17 at 03: 00 Dextrose (D50w Syringe) 25 ml Q15M PRN IV DECREASED GLUCOSE; Start 01/30/17 at 03:00 Dextrose (D50w Syringe) 50 ml Q15M PRN IV DECREASED GLUCOSE; Start 01/30/17 at 03:00 Glucagon (Glucagen) 1 mg Q15M PRN IM DECREASED GLUCOSE; Start 01/30/17 at 03:00 Glucose (Glutose) 15 gm Q15M PRN BUCCAL DECREASED GLUCOSE; Start 01/30/17 at 03 :00 Aspirin (Halfprin) 81 mg DAILY PO Last administered on 01/31/17 08:50; Admin Dose 81 MG; Start 01/31/17 at 09:00 Atorvastatin Calcium (Lipitor) 40 mg HS PO Last administered on 01/30/17 20:48 ; Admin Dose 40 MG; Start 01/30/17 at 21:00 Lisinopril (Zestril) 20 mg DAILY PO Last administered on 01/31/17 08:51; Admin Dose 20 MG; Start 01/31/17 at 09:00 SHANAE BRAGA Jan 31, 2017 10:06
[2017-01-31] MEDS ORDERED: MAGNESIUM SULFATE 1 GM/D5W 100 ML IVPB ONE (12:00)
[2017-01-31] MEDS: POTASSIUM CHLORIDE 250 ML IVPB SCH ×2 (12:41→17:42)
[2017-01-31] MEDS: METOCLOPRAMIDE 10 MG INJ IV SCH ×2 (17:42→23:36)
[2017-01-31] MEDS ORDERED: METOCLOPRAMIDE 10 MG INJ IV SCH (18:00)
--- NOTE | 2017-01-31 18:08 | CONS ---
Date/Time of Note Date/Time of Note DATE: 01/31/17 TIME: 17:50 Assessment/Plan Assessment/Plan Additional Assessment/Plan Assessment Nausea apparently resolved Abdominal distension/Ileus/resolve Diarrhea x2/post ileus resolution? vs others Hypokalemia Chronic L1/ L2 Compression fracture Uncontrolled Diabetes Mellitus A1C 7.7 GERD Dyslipidemia COPD HTN History of CVA with Right sided hemiparesis Plan Correct hypokalemia Observation if nausea recurs consider EGD Consultation Date/Type/Reason Admit Date/Time 01/29/20172131 Type of Consultation: Gastroenterology Reason for Consultation Ileus and vomiting Hx of Present Illness 86 y/o male referred for evaluation of vomiting and ileus.Patient previously seen at the ER because of abdominal pain and feeling of bloated.Presently patient does not have abdominal pain,but had liquid stools x2 mild to moderate in amount for the past 2 days and tolerating clear liquid diet. CT abdomen and pelvis Diffusely gas distended small and large bowel as well as fluid filled rectosigmoid region which may represent an ileus. Continued follow-up is suggested Small hiatal hernia. . L1 and L2 compression fractures and is most prominent at L2 with approximately 25-50% height loss.Small bowel follow through revealed no evidence of obstruction.Potassium is 3.No evidence of leukocytosis Constitutional: improved, no complaints Eyes: no complaints ENT: no complaints Respiratory: no complaints Cardiovascular: no complaints Gastrointestinal: diarrhea (watery x2 for the past 2 days), flatus, passing stool, No blood, No constipation, No decreased appetite, No nausea, No pain, No vomiting Genitourinary: no complaints Musculoskeletal: no complaints Skin: no complaints Neurologic: no complaints Endocrine: no complaints Lymphatic: no complaints Psychological: nl mood/affect Immunologic: no complaints Past Medical History Medical History: diabetes, GERD, hypertension, other (COPD,dyslipedemia, chronic compression fracture L1 L2) Past Surgical History Past Surgical Hx: no surgical history Social History Alcohol Use: none Smoking Status: Current every day smoker Drug Use: none Exam/Review of Systems Vital Signs Vitals Vital Signs Date Time Temp Pulse Resp B/P Pulse Ox O2 Delivery O2 Flow Rate FiO2 01/31/17 07:57 98.9 77 20 144/65 97 01/30/17 01:45 Room Air Intake and Output 01/30/17 01/30/17 01/31/17 15:00 23:00 07:00 Intake Total 600 ml 850 ml 1000 ml Balance 600 ml 850 ml 1000 ml Exam Constitutional: alert, oriented, well developed Psych: nl mood/affect, no complaints Head: atraumatic, normocephalic Eyes: PERRL, nl conjunctiva, nl sclera ENMT: nl external ears & nose, nl lips & teeth, nl nasal mucosa & septum Neck: non-tender, supple Respiratory: clear to auscultation, normal air movement Cardiovascular: nl pulses, regular rate and rhythm Gastrointestinal: bowel sounds (hypoactive), distended, nl liver, spleen, non- tender, soft, No firm, No hepatomegaly, No mass, No rebound or guarding, No splenomegaly, No surgical scars, No tender Musculoskeletal: nl extremities to inspection, nl gait and stance Extremities: normal pulses Neurological: NETWORK DEVEL[employer] II-XII intact, nl mental status, nl speech, nl strength Skin: nl turgor, No rash or lesions Lymph: nl lymph nodes Results Result Diagram: 01/31/17 0421 01/31/17 0425 Results 24 hrs Laboratory Tests Test 01/30/17 18:04 01/30/17 23:44 01/31/17 04:21 01/31/17 04:25 Bedside Glucose 164 143 White Blood Count 7.4 # Red Blood Count 3.94 L Hemoglobin 11.5 L Hematocrit 36.1 L Mean Corpuscular Volume 91.6 Mean Corpuscular Hemoglobin 29.2 Mean Corpuscular Hemoglobin Concent 31.9 L Red Cell Distribution Width 14.3 Platelet Count 265 Mean Platelet Volume 9.6 Neutrophils % 54.7 Lymphocytes % 34.2 Monocytes % 8.0 Eosinophils % 2.3 Basophils % 0.5 Nucleated Red Blood Cells % 0.0 Neutrophils # 4.0 Lymphocytes # 2.5 Monocytes # 0.6 Eosinophils # 0.2 Basophils # 0.0 Nucleated Red Blood Cells # 0.0 Sodium Level 146 H Potassium Level 3.0 L Chloride Level 107 Carbon Dioxide Level 28 Anion Gap 14 Blood Urea Nitrogen 16 Creatinine 0.74 Glucose Level 138 # Calcium Level 8.2 L Phosphorus Level 2.8 Magnesium Level 1.8 Albumin 3.2 L Thyroid Stimulating Hormone (TSH) 1.270 Test 01/31/17 06:00 01/31/17 12:09 01/31/17 12:11 01/31/17 17:41 Bedside Glucose 135 141 152 128 Medications Medications Current Medications Sodium Chloride (NS) 1,000 ml @ 100 mls/hr Q10H IV Last administered on 05:20; Admin Dose 100 MLS/HR; Start 01/30/17 at 01:11 Ondansetron HCl (Zofran Tab) 4 mg Q6H PRN PO NAUSEA AND/OR VOMITING; Start at 01:30 Ondansetron HCl (Zofran Inj) 4 mg Q6H PRN IV NAUSEA AND/OR VOMITING; Start at 01:30 Acetaminophen (Tylenol Tab) 650 mg Q6H PRN PO PAIN LEVEL 1-3 OR FEVER; Start at 01:30 Morphine Sulfate (morphine) 2 mg Q4H PRN IV SEVERE PAIN LEVEL 7-10; Start 01/30 at 01:30 Famotidine (Pepcid Iv) 20 mg Q12 IV Last administered on 01/31/17 08:51; Admin Dose 20 MG; Start 01/30/17 at 09:00 Enoxaparin Sodium (Lovenox) 40 mg DAILY SC Last administered on 01/31/17 09:06 ; Admin Dose 40 MG; Start 01/30/17 at 09:00 Miscellaneous Information 1 ea NOTE XX ; Start 01/30/17 at 03:00 Glucose (Glutose) 15 gm Q15M PRN PO DECREASED GLUCOSE; Start 01/30/17 at 03:00 Glucose (Glutose) 22.5 gm Q15M PRN PO DECREASED GLUCOSE; Start 01/30/17 at 03: 00 Dextrose (D50w Syringe) 25 ml Q15M PRN IV DECREASED GLUCOSE; Start 01/30/17 at 03:00 Dextrose (D50w Syringe) 50 ml Q15M PRN IV DECREASED GLUCOSE; Start 01/30/17 at 03:00 Glucagon (Glucagen) 1 mg Q15M PRN IM DECREASED GLUCOSE; Start 01/30/17 at 03:00 Glucose (Glutose) 15 gm Q15M PRN BUCCAL DECREASED GLUCOSE; Start 01/30/17 at 03 :00 Aspirin (Halfprin) 81 mg DAILY PO Last administered on 01/31/17 08:50; Admin Dose 81 MG; Start 01/31/17 at 09:00 Atorvastatin Calcium (Lipitor) 40 mg HS PO Last administered on 01/30/17 20:48 ; Admin Dose 40 MG; Start 01/30/17 at 21:00 Lisinopril 20 mg 20 mg DAILY PO Last administered on 01/31/17 08:51; Admin Dose 20 MG; Start 01/31/17 at 09:00 Potassium Chloride (KCl 40 MEQ/250 ML NS) 250 ml @ 62.5 mls/hr Q4H IVPB Last administered on 01/31/17 17:42; Admin Dose 62.5 MLS/HR; Start 01/31/17 at 10:30 ; Stop 01/31/17 at 18:29 Diagnostic Test (Pha) (Accucheck) 1 ea 02 XX ; Start 02/01/17 at 02:00 Metoclopramide HCl (Reglan) 10 mg Q6 IV Last administered on 01/31/17 17:42; Admin Dose 10 MG; Start 01/31/17 at 18:00 SHAHRIAR VILLEDA MD Jan 31, 2017 18:00
--- NOTE | 2017-01-31 19:13 | RADRPT ---
PROCEDURE: MR Lumbar Spine without contrast. CLINICAL INDICATION: Compression fractures. TECHNIQUE: Multiplanar multisequence MRI of the lumbar spine was performed. COMPARISON: No similar studies are submitted for comparison. CT of the abdomen/pelvis from January 112016. FINDINGS: There is a normal lumbar lordosis. There is a chronic mild L1 and mild to moderate L2 vertebral body compression fractures with large S chmorl's node in the superior L2 endplate. There is no significant retropulsion. Otherwise vertebral body heights are maintained. There is no destructive osseous lesion. There are mild Modic type 1 degenerative changes at L5-S1. Otherwise there is no abnormal bone mar row edema. There is disk desiccation from T12-L1 to L5-S1. The conus medullaris is at the L1-L2 level. The cauda equina is unremarkable. T12-L1 : There is moderate to severe disk space narrowing. There is a 1 mm broad-based disk osteoph yte complex without spinal canal stenosis. There is mild to moderate bilateral foraminal stenosis. L1-L2 : There is a 1 mm broad-based disk bulge without spinal canal stenosis. There is mild to mode rate left without right foraminal stenosis. L2-L3 : There is moderate disk space narrowing. There is 1 mm retrolisthesis with a broad-based dis k bulge with moderate bilateral facet arthropathy and ligamentum flavum infolding without spinal can al stenosis. There is moderate left and mild to moderate right foraminal stenosis. L3-L4 : There is moderate to severe disk space narrowing. There is a 3 mm broad-based disk bulge wi th moderate bilateral facet arthropathy and ligamentum flavum infolding causing moderate spinal an l stenosis. There is severe right with moderate left foraminal stenosis impinging the exiting right L3 nerve root. L4-L5 : There is moderate to severe disk space narrowing. There is a 3 mm broad-based disk osteophy te complex with 1 mm central disk protrusion with moderate bilateral facet arthropathy and a infoldi ng causing mild spinal canal stenosis. There is moderate to severe right with mild to moderate left foraminal stenosis with impingement of the exiting right L4 nerve root. L5-S1 : There is severe disk space narrowing. There is a 2 mm circumferential disk osteophyte compl ex with 2 mm right subarticular disk osteophyte protrusion with moderate bilateral facet arthropathy and ligamentum flavum infolding causing mild to moderate spinal canal stenosis. There is severe ri ght and moderate severe left foraminal stenosis impinging the exiting bilateral L5 nerve roots. The paraspinal musculature are within normal limits. IMPRESSION: 1. No acute fracture. 2. Chronic mild L1 and mild to moderate L2 vertebral body compression fractures with large Schmorl's node in the superior L2 endplate. There is no significant retropulsion. 3. L3-L4 broad-based disk bulge with moderate spinal canal stenosis. There is severe right foramina l stenosis impinging the exiting right L3 nerve root. 4. L4-L5 broad-based disk osteophyte complex with 1 mm central disk protrusion with mild spinal can al stenosis. There is moderate to severe right foraminal stenosis with impingement of the exiting r ight L4 nerve root. 5. L5-S1 circumferential disk osteophyte complex with 2 mm right subarticular disk osteophyte protr usion with mild to moderate spinal canal stenosis. There is severe right and moderate severe left f oraminal stenosis impinging the exiting bilateral L5 nerve roots. Further findings as detailed above. RPTAT: PP .Sav Justice MD, Date Time Electronically viewed and signed by .Sav Justice MD, on 01/31/2017 19:12 .F/
[2017-01-31 20:19] VITALS: BP 140/67; RESP 18
[2017-01-31] MEDS: ATORVASTATIN 40 MG TAB PO SCH (21:00)
[2017-02-01] MEDS: ACCU-CHEK XX SCH (02:00)
[2017-02-01] MEDS: SOD CHLORIDE 0.9% 1,000 ML IV SCH ×3 (02:22→23:11)
[2017-02-01 05:16] LABS: ADD SCAN DIFF NO
[2017-02-01 05:19] LABS: BASOPHILS % 0.5 % (0.0-2.0); EOSINOPHILS # 0.2 10^3/ul (0.0-0.5); EOSINOPHILS % 2.7 % (0.0-7.0); HEMATOCRIT 33.9 % (42.0-52.0); HEMOGLOBIN 10.9 g/dl (14.0-18.0); LYMPHOCYTES # 2.5 10^3/ul (0.8-2.9); LYMPHOCYTES % 32.5 % (15.0-51.0); MEAN CORPUSCULAR HEMOGLOBIN 29.5 pg (29.0-33.0); MEAN CORPUSCULAR HGB CONC 32.2 g/dl (32.0-37.0); MEAN CORPUSCULAR VOLUME 91.6 fl (82.0-101.0); MEAN PLATELET VOLUME 9.8 fl (7.4-10.4); MONOCYTE # 0.7 10^3/ul (0.3-0.9); NEUTROPHIL # 4.3 10^3/ul (1.6-7.5); PLATELET COUNT 261 10^3/UL (140-415); RED CELL DISTRIBUTION WIDTH 14.1 % (11.5-14.5); WHITE BLOOD COUNT 7.8 10^3/ul (4.8-10.8)
[2017-02-01 05:25] LABS: ALBUMIN 2.9 g/dl (3.3-4.9); POTASSIUM 3.4 mmol/L (3.5-5.1)
[2017-02-01 05:27] LABS: CREATININE 0.69 mg/dl (0.61-1.24)
[2017-02-01 05:28] LABS: CALCIUM 7.9 mg/dl (8.4-10.2); PHOSPHORUS 2.1 mg/dl (2.5-4.9)
[2017-02-01] MEDS: METOCLOPRAMIDE 10 MG INJ IV SCH ×4 (05:53→23:52)
[2017-02-01 08:12] VITALS: BP 160/77; RESP 20
[2017-02-01] MEDS: FAMOTIDINE 20 MG INJ IV SCH (09:19)
[2017-02-01] MEDS: LISINOPRIL 20 MG TAB PO SCH (09:19)
[2017-02-01] MEDS: ASPIRIN (EC) 81 MG TAB PO SCH (09:19)
[2017-02-01] MEDS: ENOXAPARIN 40 MG/0.4 ML SYG SC SCH (09:22)
[2017-02-01] MEDS: INSULIN ASPART [NOVOLOG] 3 ML PEN SC SCH ×4 (09:29→21:00)
[2017-02-01] MEDS ORDERED: POTASSIUM CHLORIDE (SR) 20 MEQ TAB PO STA (10:26)
[2017-02-01] MEDS ORDERED: POTASSIUM CHLORIDE 250 ML IVPB ONE (10:30)
[2017-02-01] MEDS ORDERED: MAGNESIUM SULFATE 1 GM/D5W 100 ML IVPB ONE (11:30)
[2017-02-01] MEDS ORDERED: POTASSIUM PHOSPHATE 15 MM in SOD CHLORIDE 0.9% 250 ML IVPB ONE (12:00)
[2017-02-01] MEDS: POLYETHYLENE GLYCOL 17 GM PACKET PO SCH (12:44)
[2017-02-01] MEDS ORDERED: ASPI-664 PO (13:40)
[2017-02-01] MEDS ORDERED: ATOR40TA68 PO (13:40)
[2017-02-01] MEDS ORDERED: POLY17PO6 PO (13:40)
[2017-02-01] MEDS ORDERED: DOCU-144 PO (13:41)
[2017-02-01] MEDS ORDERED: LISI40TA9 PO (13:41)
--- NOTE | 2017-02-01 13:42 | PDOCDIS ---
Discharge Instructions DIAGNOSIS Discharge Diagnosis: ileus CONDITION Patient Condition: Stable HOME CARE INSTRUCTIONS: Diet Instructions: Low Fat /CholesterolSpecial Diet: high fibre ACTIVITY: Activity Restrictions: Slowly Increase Activity Rest between Activity Avoid heavy lifting Do not operate Machinery Do not operate Power Tool Avoid Heavy Housework Bathing Restrictions: Shower FOLLOW UP/APPOINTMENTS Appointments Followup with your primary doctor within the next 1 week. If you don't have one please let someone know, we can give you resources that may help you pick one. You may also call your insurance company to assign one to you. Review your medication list with your nurse before leaving and if you need new prescriptions please let your nurse know. I may have made changes to your home medications or given you new prescriptions , please let your primary doctor know as well. Stay compliant with your medications and report any side effects to your PCP or pharmacist. Return to the ER if you have any concerns and cannot reach your doctors or call your insurance company, they usually have a nurse that can help you. SHANAE BRAGA Feb 01, 2017 13:42
[2017-02-01] MEDS ORDERED: LISINOPRIL 20 MG TAB PO ONE (14:00)
--- NOTE | 2017-02-01 14:04 | RADRPT ---
PROCEDURE: XR Abdomen. CLINICAL INDICATION: Abdomen pain. TECHNIQUE: AP supine abdomen x-ray. COMPARISON: Small bowel follow-through dated 01/30/2017. FINDINGS: Contrast is present in the colon from a prior small bowel follow-through. No contrast remains in th e small bowel. There is gas throughout the small bowel and with no evidence of obstruction. The lung bases are normal. There are no abnormal calcifications. There are degenerative changes of the spine. IMPRESSION: 1. Contrast remaining in the colon from prior small bowel follow-through. 2. No evidence of obstruction. 3. Degenerative changes of the spine. RPTAT: QQ .Kirk Villalobos MD, MD Date Time Electronically viewed and signed by .Kirk Villalobos MD, MD on 02/01/2017 14:04 .R/
[2017-02-01] MEDS: DOCUSATE SODIUM 100 MG CAP PO SCH ×2 (17:15→21:03)
[2017-02-01] MEDS ORDERED: METO5TAB58 PO (17:23)
--- NOTE | 2017-02-01 17:34 | PN ---
Date/Time of Note Date/Time of Note DATE: 02/01/17 TIME: 17:27 Assessment/Plan Lines/Catheters IV Catheter Type (from Nrsg): Peripheral IV Urinary Cath still in place: No Assessment/Plan Assessment/Plan 86 yo M with abd pain managed for 1. Abd Ileus: resolved * likely 2. Chronic L1/ L2 Compression fracture 3. Uncontrolled Diabetes Mellitus A1C 7.7 4. GERD 5. Dyslipidemia 6. COPD 7. HTN 8. History of CVA with Right sided hemiparesis 9. Hypokalemia PLAN: * * Continue supportive care / resume aspirin / antihypertensives and statin / supportive care Subjective 24 Hr Interval Summary Free Text/Dictation * patient reports feeling better * wants to go home * Daughter however reports history of black stools * MRI reviewed with YA Hinds to start PT Exam/Review of Systems Vital Signs Vitals Vital Signs Date Time Temp Pulse Resp B/P Pulse Ox O2 Delivery O2 Flow Rate FiO2 02/01/17 08:12 98.2 58 20 160/77 97 01/30/17 01:45 Room Air Intake and Output 01/31/17 01/31/17 02/01/17 15:00 23:00 07:00 Intake Total 100 ml 2009 ml 1150 ml Balance 100 ml 2010 ml 1150 ml Exam Constitutional: alert, obese, oriented, other (elderly), No distress Psych: nl mood/affect Head: normocephalic Eyes: PERRL, No icteric ENMT: No mucosa pink and moist (dry) Neck: non-tender, supple Respiratory: clear to auscultation, normal air movement Cardiovascular: regular rate and rhythm, No murmurs/extra sounds Gastrointestinal: non-tender, other (obese), soft, No distended Extremities: No edema Neurological: nl mental status, other (R sided weakness (weak 4/5 ) in both upper and lower extremities) Results Result Diagram: 02/01/1741902/01/17419 Results 24 hrs Laboratory Tests Test 01/31/17 17:41 02/01/17 04:20 02/01/17 09:18 02/01/17 12:49 Bedside Glucose 128 145 183 White Blood Count 7.8 Red Blood Count 3.70 L Hemoglobin 10.9 L Hematocrit 33.9 L Mean Corpuscular Volume 91.6 Mean Corpuscular Hemoglobin 29.5 Mean Corpuscular Hemoglobin Concent 32.2 Red Cell Distribution Width 14.1 Platelet Count 261 Mean Platelet Volume 9.8 Neutrophils % 55.0 Lymphocytes % 32.5 Monocytes % 9.0 Eosinophils % 2.7 Basophils % 0.5 Nucleated Red Blood Cells % 0.0 Neutrophils # 4.3 Lymphocytes # 2.5 Monocytes # 0.7 Eosinophils # 0.2 Basophils # 0.0 Nucleated Red Blood Cells # 0.0 Sodium Level 145 H Potassium Level 3.4 L Chloride Level 111 H Carbon Dioxide Level 24 Anion Gap 13 Blood Urea Nitrogen 12 Creatinine 0.69 Glucose Level 128 Calcium Level 7.9 L Phosphorus Level 2.1 L Albumin 2.9 L Test 02/01/17 17:22 Bedside Glucose 139 Medications Medications Current Medications Sodium Chloride (NS) 1,000 ml @ 100 mls/hr Q10H IV Last administered on 12:47; Admin Dose 100 MLS/HR; Start 01/30/17 at 01:11 Ondansetron HCl (Zofran Tab) 4 mg Q6H PRN PO NAUSEA AND/OR VOMITING; Start at 01:30 Ondansetron HCl (Zofran Inj) 4 mg Q6H PRN IV NAUSEA AND/OR VOMITING; Start at 01:30 Acetaminophen (Tylenol Tab) 650 mg Q6H PRN PO PAIN LEVEL 1-3 OR FEVER; Start at 01:30 Morphine Sulfate (morphine) 2 mg Q4H PRN IV SEVERE PAIN LEVEL 7-10; Start 01/30 at 01:30 Enoxaparin Sodium (Lovenox) 40 mg DAILY SC Last administered on 02/01/17 09:22 ; Admin Dose 40 MG; Start 01/30/17 at 09:00 Miscellaneous Information 1 ea NOTE XX ; Start 01/30/17 at 03:00 Glucose (Glutose) 15 gm Q15M PRN PO DECREASED GLUCOSE; Start 01/30/17 at 03:00 Glucose (Glutose) 22.5 gm Q15M PRN PO DECREASED GLUCOSE; Start 01/30/17 at 03: 00 Dextrose (D50w Syringe) 25 ml Q15M PRN IV DECREASED GLUCOSE; Start 01/30/17 at 03:00 Dextrose (D50w Syringe) 50 ml Q15M PRN IV DECREASED GLUCOSE; Start 01/30/17 at 03:00 Glucagon (Glucagen) 1 mg Q15M PRN IM DECREASED GLUCOSE; Start 01/30/17 at 03:00 Glucose (Glutose) 15 gm Q15M PRN BUCCAL DECREASED GLUCOSE; Start 01/30/17 at 03 :00 Aspirin (Halfprin) 81 mg DAILY PO Last administered on 02/01/17 09:19; Admin Dose 81 MG; Start 01/31/17 at 09:00 Atorvastatin Calcium (Lipitor) 40 mg HS PO Last administered on 01/30/17 20:48 ; Admin Dose 40 MG; Start 01/30/17 at 21:00 Diagnostic Test (Pha) (Accucheck) 1 ea 02 XX ; Start 02/01/17 at 02:00 Metoclopramide HCl (Reglan) 10 mg Q6 IV Last administered on 02/01/17 17:16; Admin Dose 10 MG; Start 01/31/17 at 18:00 Potassium Chloride (Klor-Con 20) 20 meq DAILY PO ; Start 02/02/17 at 09:00 Polyethylene Glycol (Miralax) 17 gm DAILY PO Last administered on 02/01/17 12: 44; Admin Dose 17 GM; Start 02/01/17 at 10:30 Lisinopril (Zestril) 40 mg DAILY PO ; Start 02/02/17 at 09:00 Docusate Sodium (Colace) 100 mg BID PO Last administered on 02/01/17 17:15; Admin Dose 100 MG; Start 02/01/17 at 14:00 Famotidine (Pepcid) 20 mg Q12 PO ; Start 02/01/17 at 21:00 SHANAE BRAGA Feb 01, 2017 17:34
[2017-02-01 19:00] VITALS: BP 157/80; RESP 18
--- NOTE | 2017-02-01 20:25 | CONS ---
Date/Time of Note Date/Time of Note DATE: 02/01/17 TIME: 20:23 Assessment/Plan Assessment/Plan Additional Assessment/Plan Assessment Nausea apparently resolved Abdominal distension/Ileus/resolve Diarrhea x2/post ileus resolution? vs others Hypokalemia Chronic L1/ L2 Compression fracture Uncontrolled Diabetes Mellitus A1C 7.7 GERD Dyslipidemia COPD HTN History of CVA with Right sided hemiparesis Plan Correct hypokalemia Observation if nausea recurs consider EGD Patient seen in collaboration with Dr. Freitas Consultation Date/Type/Reason Admit Date/Time Jan 31, 2017 at 15:20 Initial Consult Date Type of Consultation: Gastroenterology 24 HR Interval Summary Free Text/Dictation Patient continues to decline EGD to further evaluate anemia Hemoglobin stable Exam/Review of Systems Vital Signs Vitals Vital Signs Date Time Temp Pulse Resp B/P Pulse Ox O2 Delivery O2 Flow Rate FiO2 02/01/17 19:00 97.9 63 18 157/80 95 01/30/17 01:45 Room Air Intake and Output 01/31/17 01/31/17 02/01/17 15:00 23:00 07:00 Intake Total 100 ml 2010 ml 1150 ml Balance 100 ml 2010 ml 1150 ml Exam Constitutional: alert, oriented, well developed Psych: nl mood/affect Head: normocephalic Eyes: EOMI, nl conjunctiva, nl lids ENMT: nl external ears & nose, nl lips & teeth, nl nasal mucosa & septum Respiratory: clear to auscultation, normal air movement Cardiovascular: regular rate and rhythm Gastrointestinal: soft, non-tender Musculoskeletal: nl extremities to inspection Neurological: PULP PRESS TENDER II-XII intact Results Result Diagram: 02/01/17 0420 02/01/17 0420 Results 24 hrs Laboratory Tests Test 02/01/17 04:20 02/01/17 09:18 02/01/17 12:49 02/01/17 17:22 White Blood Count 7.8 Red Blood Count 3.70 L Hemoglobin 10.9 L Hematocrit 33.9 L Mean Corpuscular Volume 91.6 Mean Corpuscular Hemoglobin 29.5 Mean Corpuscular Hemoglobin Concent 32.2 Red Cell Distribution Width 14.1 Platelet Count 261 Mean Platelet Volume 9.8 Neutrophils % 55.0 Lymphocytes % 32.5 Monocytes % 9.0 Eosinophils % 2.7 Basophils % 0.5 Nucleated Red Blood Cells % 0.0 Neutrophils # 4.3 Lymphocytes # 2.5 Monocytes # 0.7 Eosinophils # 0.2 Basophils # 0.0 Nucleated Red Blood Cells # 0.0 Sodium Level 145 H Potassium Level 3.4 L Chloride Level 111 H Carbon Dioxide Level 24 Anion Gap 13 Blood Urea Nitrogen 12 Creatinine 0.69 Glucose Level 128 Calcium Level 7.9 L Phosphorus Level 2.1 L Albumin 2.9 L Bedside Glucose 145 183 139 Medications Medications Current Medications Sodium Chloride (NS) 1,000 ml @ 100 mls/hr Q10H IV Last administered on 12:47; Admin Dose 100 MLS/HR; Start 01/30/17 at 01:11 Ondansetron HCl (Zofran Tab) 4 mg Q6H PRN PO NAUSEA AND/OR VOMITING; Start at 01:30 Ondansetron HCl (Zofran Inj) 4 mg Q6H PRN IV NAUSEA AND/OR VOMITING; Start at 01:30 Acetaminophen (Tylenol Tab) 650 mg Q6H PRN PO PAIN LEVEL 1-3 OR FEVER; Start at 01:30 Morphine Sulfate (morphine) 2 mg Q4H PRN IV SEVERE PAIN LEVEL 7-10; Start 01/30 at 01:30 Enoxaparin Sodium (Lovenox) 40 mg DAILY SC Last administered on 02/01/17 09:22 ; Admin Dose 40 MG; Start 01/30/17 at 09:00 Miscellaneous Information 1 ea NOTE XX ; Start 01/30/17 at 03:00 Glucose (Glutose) 15 gm Q15M PRN PO DECREASED GLUCOSE; Start 01/30/17 at 03:00 Glucose (Glutose) 22.5 gm Q15M PRN PO DECREASED GLUCOSE; Start 01/30/17 at 03: 00 Dextrose (D50w Syringe) 25 ml Q15M PRN IV DECREASED GLUCOSE; Start 01/30/17 at 03:00 Dextrose (D50w Syringe) 50 ml Q15M PRN IV DECREASED GLUCOSE; Start 01/30/17 at 03:00 Glucagon (Glucagen) 1 mg Q15M PRN IM DECREASED GLUCOSE; Start 01/30/17 at 03:00 Glucose (Glutose) 15 gm Q15M PRN BUCCAL DECREASED GLUCOSE; Start 01/30/17 at 03 :00 Aspirin (Halfprin) 81 mg DAILY PO Last administered on 02/01/17 09:19; Admin Dose 81 MG; Start 01/31/17 at 09:00 Atorvastatin Calcium (Lipitor) 40 mg HS PO Last administered on 01/30/17 20:48 ; Admin Dose 40 MG; Start 01/30/17 at 21:00 Diagnostic Test (Pha) (Accucheck) 1 ea 02 XX ; Start 02/01/17 at 02:00 Metoclopramide HCl (Reglan) 10 mg Q6 IV Last administered on 02/01/17 17:16; Admin Dose 10 MG; Start 01/31/17 at 18:00 Potassium Chloride (Klor-Con 20) 20 meq DAILY PO ; Start 02/02/17 at 09:00 Polyethylene Glycol (Miralax) 17 gm DAILY PO Last administered on 02/01/17 12: 44; Admin Dose 17 GM; Start 02/01/17 at 10:30 Lisinopril (Zestril) 40 mg DAILY PO ; Start 02/02/17 at 09:00 Docusate Sodium (Colace) 100 mg BID PO Last administered on 02/01/17 17:15; Admin Dose 100 MG; Start 02/01/17 at 14:00 Famotidine (Pepcid) 20 mg Q12 PO ; Start 02/01/17 at 21:00 JOYCE ROMANO Feb 01, 2017 20:25
[2017-02-01] MEDS: ATORVASTATIN 40 MG TAB PO SCH (21:03)
[2017-02-01] MEDS: FAMOTIDINE 20 MG TAB PO SCH (21:03)
[2017-02-02] MEDS: ACCU-CHEK XX SCH (02:00)
[2017-02-02 04:56] LABS: ADD SCAN DIFF NO
[2017-02-02 05:19] LABS: BASOPHILS % 0.3 % (0.0-2.0); EOSINOPHILS # 0.3 10^3/ul (0.0-0.5); EOSINOPHILS % 3.8 % (0.0-7.0); HEMOGLOBIN 10.7 g/dl (14.0-18.0); LYMPHOCYTES # 2.8 10^3/ul (0.8-2.9); LYMPHOCYTES % 39.4 % (15.0-51.0); MEAN CORPUSCULAR HEMOGLOBIN 29.5 pg (29.0-33.0); MEAN CORPUSCULAR HGB CONC 32.4 g/dl (32.0-37.0); MEAN CORPUSCULAR VOLUME 90.9 fl (82.0-101.0); MEAN PLATELET VOLUME 9.8 fl (7.4-10.4); MONOCYTE # 0.6 10^3/ul (0.3-0.9); NEUTROPHIL # 3.5 10^3/ul (1.6-7.5); NEUTROPHILS % 48.2 % (39.0-77.0); PLATELET COUNT 246 10^3/UL (140-415); RED BLOOD COUNT 3.63 10^6/ul (4.70-6.10); WHITE BLOOD COUNT 7.2 10^3/ul (4.8-10.8)
[2017-02-02 05:22] LABS: ALBUMIN 2.7 g/dl (3.3-4.9); POTASSIUM 3.6 mmol/L (3.5-5.1)
[2017-02-02 05:25] LABS: CREATININE 0.69 mg/dl (0.61-1.24); PHOSPHORUS 3.1 mg/dl (2.5-4.9)
[2017-02-02] MEDS: METOCLOPRAMIDE 10 MG INJ IV SCH ×3 (05:56→17:09)
[2017-02-02 08:11] VITALS: BP 137/74; RESP 20
[2017-02-02] MEDS ORDERED: LISINOPRIL 20 MG TAB PO SCH (09:00)
[2017-02-02] MEDS ORDERED: POTASSIUM CHLORIDE (SR) 20 MEQ TAB PO SCH (09:00)
[2017-02-02] MEDS: POLYETHYLENE GLYCOL 17 GM PACKET PO SCH (09:24)
[2017-02-02] MEDS: DOCUSATE SODIUM 100 MG CAP PO SCH (09:24)
[2017-02-02] MEDS: FAMOTIDINE 20 MG TAB PO SCH (09:24)
[2017-02-02] MEDS: ASPIRIN (EC) 81 MG TAB PO SCH (09:25)
[2017-02-02] MEDS: ENOXAPARIN 40 MG/0.4 ML SYG SC SCH (09:26)
[2017-02-02] MEDS: INSULIN ASPART [NOVOLOG] 3 ML PEN SC SCH ×3 (09:30→17:08)
[2017-02-02] MEDS: SOD CHLORIDE 0.9% 1,000 ML IV SCH ×2 (09:31→17:09)
[2017-02-02 17:31] VITALS: BP 147/70; PULSE 66; RESP 20
--- NOTE | 2017-02-02 18:23 | DS ---
DATE OF ADMISSION: 01/31/2017 DATE OF DISCHARGE: 02/02/2017 PRESENTING COMPLAINT: 1. Abdominal pain. 2. Bloating. 3. Vomiting. DIAGNOSES: 1. Abdominal ileus, likely secondary to diabetic gastroparesis and chronic immobility, causing abdo evan pain and vomiting, now resolved. 2. Chronic L1-L2 compression fractures. 3. Diabetes mellitus type 2 with improved in house control. 4. Gastroesophageal reflux disease. 5. Dyslipidemia. 6. Chronic obstructive pulmonary disease. 7. Hypertension. 8. History of cerebrovascular accident with right-sided hemiparesis. 9. Hypokalemia, now resolved. 10. Reported history of ____. 11. Chronic normocytic anemia. CONSULTS ON THE CASE: Gastroenterology, Dr. Kaleb Freitas. INTERVENTIONS: Essentially, this is an 86-year-old male who was brought into the emergency room by ambulance because of concerns for abdominal pain, bloating, and vomiting. The patient was worked up in the emergency room with an abdominopelvic CT done 01/29/2017 that showed 1. Diffusely gas distended small and large bowel as well as a fluid-filled rectosigmoid colon which may represent an ileus. 2. Small hiatal hernia. 3. L1 and L2 compression fractures most prominent at L2 with approximately 25 to 50% height loss. The second imaging study he had in the ER was a chest x-ray. Chest x-ray showed mild bibasilar atel ectasis. Based on these findings, the patient was admitted to the hospital for control of symptoms and manage ment of abdominal ileus. Overnight, on the day he was admitted, the patient spontaneously had a lar ge bowel movement, and as such, a small bowel follow-through was ordered. Small bowel follow-through done 01/30/2017 showed no evidence of obstruction but a lot of gas in the nondilated small bowel and colon. Based on these findings, the patient was commenced on a clear li quid diet with which he initially had some difficulty, having still some gas and nausea. He was sta rted on Reglan therapy, and this helped him significantly. His symptoms all resolved. Now, on physical exam, the patient did have some right-sided hemiparesis, but he was still able to m ove both his upper and lower extremities on the right side against gravity even though he could not move it against resistance. As such, I did recommend that the patient undergo physical therapy eval uation. I spoke with the patient's daughter who tells me the patient is supposed to do physical the rapy at home; however, the patient chooses not to participate in this. To ensure the patient was sa fe for therapy in view of the presence of L1-L2 compression fractures on CAT scan, I ordered lumbar spine MRI. Lumbar spine MRI done 01/31/2017 showed no acute fracture, chronic mild L1 and mild to moderate L2 v ertebral body compression fractures with large ____ nodes in the superior L2-L3. No significant ret ropulsion. L3-L4 disk bulge with moderate spinal canal stenosis with severe right foraminal stenosi s impinging on the exiting right L3 nerve root. Similar findings at L4-L5 as well as L5-S1. I revi ewed these findings by telephone with the neurosurgeon, Dr. Reeder, and he told me there were no ac dale findings and as such the patient was safe for physical therapy evaluation. This was offered to the patient, and physical therapy reviewed the patient and recommended that the patient be sent home with home health PT with daily physical therapy for bed mobility, transfers, ba matthew training, safety awareness until goals met. As such, at this time, the patient is being disch arged with home health for physical therapy. To find out the cause of his ileus and to prevent it from further recurring, we recommended the darnell ent undergo an EGD and colonoscopy, and for this reason, GI was consulted. The patient, however, de clined this procedure twice requesting instead to be discharged home despite being counseled otherwi se by his daughter. As of today, the patient is requesting discharge home. He has vehemently refus ed EGD and colonoscopy and is being discharged home in stable condition. The patient is sent home with home health for physical therapy. MEDICATIONS: He is also being discharged on the following medications: 1. Aspirin 81 daily. 2. Lipitor 40 at bedtime. 3. Colace 100 b.i.d. 4. Lisinopril 40 daily. 5. Reglan 5 mg daily. 6. MiraLAX 17 grams daily. FOLLOWUP: He is recommended to follow up with his primary care physician as soon as possible for co ntinued management and workup. DIET: Recommended to maintain a high fiber, 1800 ADA, low cholesterol, low fat diet. As of today, I have spoken with the patient in detail. I have spoken with his GI physician. I have spoken with the patient's daughter and answered questions and coordinated the discharge plan. Eval uation time so far has been about 50 minutes. For further information and clarification, please rev iew the patient's chart and my final discharge orders. Dictated By: SHANAE BRAGA MD BA/CHRISS Conf#: [id number] DID#: [id number]
== END 2017-02-02 18:40 | disposition home health service (06) | DRG 74 ==
LOC: E/R 18:58 → MS1 21:33 → OBSVTOIN 01-31 15:20
PROVIDERS: ADMIT Family Medicine; ATTEND Family Medicine
DX: E11.43 Type 2 diabetes mellitus with diabetic autonomic (poly)neuropathy (principal); I69.951 Hemiplegia and hemiparesis following unspecified cerebrovascular disease affecting right dominant side; K56.7 Ileus, unspecified; I10 Essential (primary) hypertension; M48.57XS Collapsed vertebra, not elsewhere classified, lumbosacral region, sequela of fracture; D64.9 Anemia, unspecified; K21.9 Gastro-esophageal reflux disease without esophagitis; E78.5 Hyperlipidemia, unspecified; J44.9 Chronic obstructive pulmonary disease, unspecified; E87.6 Hypokalemia; R19.7 Diarrhea, unspecified; K31.84 Gastroparesis; K44.9 Diaphragmatic hernia without obstruction or gangrene; Z79.82 Long term (current) use of aspirin
CPT/HCPCS: 36415; 71010; 72148; 74000; 74176; 74250; 80048; 80053; 80061; 80069; 81001; 81003; 82962; 83036; 83690; 83735; 83880; 84443; 84484; 85025; 93005; 96374; 96375; 97162; A4310; G0378; J0360; J1650; J1815; J2405; J2765; J3475; J3480; J7030; J7042; J7050